=== PATIENT | female | born 1995 | race African-American/Black ===

== ENCOUNTER → 2021-01-26 | Outpatient (CLI) | payer OTHER | LOC: RAD 12:25 | PROVIDERS: ATTEND Physician Assistant | DX: L73.2 Hidradenitis suppurativa (principal); Z79.899 Other long term (current) drug therapy ==

== ENCOUNTER → 2021-02-07 | Outpatient (CLI) | payer OTHER | LOC: RAD 09:55 | PROVIDERS: ATTEND Internal Medicine Rheumatology | DX: M25.539 Pain in unspecified wrist (principal); M25.579 Pain in unspecified ankle and joints of unspecified foot; R70.0 Elevated erythrocyte sedimentation rate ==

== ENCOUNTER → 2021-08-16 | Outpatient (CLI) | payer OTHER | LOC: HYPER 07:22 | PROVIDERS: ATTEND Emergency Medicine | DX: L97.112 Non-pressure chronic ulcer of right thigh with fat layer exposed (principal); L97.122 Non-pressure chronic ulcer of left thigh with fat layer exposed; L98.492 Non-pressure chronic ulcer of skin of other sites with fat layer exposed; L98.412 Non-pressure chronic ulcer of buttock with fat layer exposed; L73.2 Hidradenitis suppurativa; J45.909 Unspecified asthma, uncomplicated; G89.29 Other chronic pain; E66.9 Obesity, unspecified; Z68.31 Body mass index [BMI] 31.0-31.9, adult; Z79.899 Other long term (current) drug therapy ==

== ENCOUNTER → 2021-09-19 | Outpatient (CLI) | payer OTHER | LOC: HYPER 12:46 | PROVIDERS: ATTEND Emergency Medicine | DX: T81.89XA Other complications of procedures, not elsewhere classified, initial encounter (principal); L73.2 Hidradenitis suppurativa; L98.492 Non-pressure chronic ulcer of skin of other sites with fat layer exposed; L97.112 Non-pressure chronic ulcer of right thigh with fat layer exposed; L97.122 Non-pressure chronic ulcer of left thigh with fat layer exposed; L98.412 Non-pressure chronic ulcer of buttock with fat layer exposed; J45.909 Unspecified asthma, uncomplicated; G89.29 Other chronic pain; E66.9 Obesity, unspecified; Z68.30 Body mass index [BMI] 30.0-30.9, adult; Y92.238 Other place in hospital as the place of occurrence of the external cause; Y83.8 Other surgical procedures as the cause of abnormal reaction of the patient, or of later complication, without mention of misadventure at the time of the procedure ==

== ENCOUNTER → 2021-09-20 | Outpatient (CLI) | payer OTHER | LOC: HYPER 15:07 | DX: T81.31XD Disruption of external operation (surgical) wound, not elsewhere classified, subsequent encounter (principal); L98.412 Non-pressure chronic ulcer of buttock with fat layer exposed; L98.492 Non-pressure chronic ulcer of skin of other sites with fat layer exposed; L97.112 Non-pressure chronic ulcer of right thigh with fat layer exposed; L97.122 Non-pressure chronic ulcer of left thigh with fat layer exposed; L73.2 Hidradenitis suppurativa; J45.909 Unspecified asthma, uncomplicated; E66.9 Obesity, unspecified; G89.29 Other chronic pain; Z68.31 Body mass index [BMI] 31.0-31.9, adult; Z79.899 Other long term (current) drug therapy; Y83.8 Other surgical procedures as the cause of abnormal reaction of the patient, or of later complication, without mention of misadventure at the time of the procedure ==

== ENCOUNTER → 2021-09-21 | Outpatient (CLI) | payer OTHER | LOC: HYPER 07:44 | PROVIDERS: ATTEND Emergency Medicine Emergency Medical Services | DX: T81.31XD Disruption of external operation (surgical) wound, not elsewhere classified, subsequent encounter (principal); L73.2 Hidradenitis suppurativa; L98.492 Non-pressure chronic ulcer of skin of other sites with fat layer exposed; L97.112 Non-pressure chronic ulcer of right thigh with fat layer exposed; L97.122 Non-pressure chronic ulcer of left thigh with fat layer exposed; L98.412 Non-pressure chronic ulcer of buttock with fat layer exposed; J45.909 Unspecified asthma, uncomplicated; G89.29 Other chronic pain; E66.9 Obesity, unspecified; Z68.31 Body mass index [BMI] 31.0-31.9, adult; Z79.899 Other long term (current) drug therapy; Y83.8 Other surgical procedures as the cause of abnormal reaction of the patient, or of later complication, without mention of misadventure at the time of the procedure ==

== ENCOUNTER → 2021-09-24 | Outpatient (CLI) | payer OTHER | LOC: HYPER 11:13 | PROVIDERS: ATTEND Emergency Medicine | DX: T81.31XD Disruption of external operation (surgical) wound, not elsewhere classified, subsequent encounter (principal); L98.412 Non-pressure chronic ulcer of buttock with fat layer exposed; L98.492 Non-pressure chronic ulcer of skin of other sites with fat layer exposed; L97.112 Non-pressure chronic ulcer of right thigh with fat layer exposed; L97.122 Non-pressure chronic ulcer of left thigh with fat layer exposed; L73.2 Hidradenitis suppurativa; J45.909 Unspecified asthma, uncomplicated; G89.29 Other chronic pain; E66.9 Obesity, unspecified; Z68.31 Body mass index [BMI] 31.0-31.9, adult; Z79.899 Other long term (current) drug therapy; Y83.8 Other surgical procedures as the cause of abnormal reaction of the patient, or of later complication, without mention of misadventure at the time of the procedure ==

== ENCOUNTER 2021-09-30 21:41 | Emergency (ER) | payer OTHER ==
[~2021-09-30] VITALS: Ht 160 cm; Wt 83.9 kg
[2021-09-30 21:44] VITALS: BP 127/78
[2021-09-30 22:09] LABS: URINE BILIRUBIN NEGATIVE (Negative); URINE BLOOD 3+ (Negative); URINE CLARITY SL CLOUDY; URINE COLOR YELLOW; URINE GLUCOSE-RANDOM* NEGATIVE (Negative); URINE KETONES NEGATIVE (Negative); URINE NITRITE-REFLEX NEGATIVE (Negative); URINE PROTEIN (DIPSTICK) 1+ (Negative); URINE UROBILINOGEN 0.2 E.U./dl (0.2-1.0)
[2021-09-30 22:12] LABS: URINE LEUKOCYTES-REFLEX 1+ (Negative)
[2021-09-30 23:03] LABS: SQUAMOUS None Seen /LPF (0-3)
[2021-09-30 23:04] LABS: BACTERIA-REFLEX 1-9 Few /HPF (None Seen); CASTS None Seen /LPF (None Seen); CRYSTALS None Seen /LPF (None Seen); MUCUS 0-3 Light strn/LPF (None Seen)
[2021-09-30 23:05] LABS: URINE WBC-REFLEX 0-5 Rare /HPF (0-5)
== END 2021-09-30 23:30 | disposition home or self-care (01) ==
LOC: ER 21:41
PROVIDERS: Emergency Medicine
DX: T83.83XA Hemorrhage due to genitourinary prosthetic devices, implants and grafts, initial encounter (principal); Z98.890 Other specified postprocedural states

== ENCOUNTER → 2021-10-03 | Outpatient (CLI) | payer OTHER | LOC: HYPER 08:15 | PROVIDERS: ATTEND Emergency Medicine | DX: T81.31XD Disruption of external operation (surgical) wound, not elsewhere classified, subsequent encounter (principal); L98.412 Non-pressure chronic ulcer of buttock with fat layer exposed; L98.492 Non-pressure chronic ulcer of skin of other sites with fat layer exposed; L97.112 Non-pressure chronic ulcer of right thigh with fat layer exposed; L97.122 Non-pressure chronic ulcer of left thigh with fat layer exposed; L73.2 Hidradenitis suppurativa; J45.909 Unspecified asthma, uncomplicated; G89.29 Other chronic pain; E66.9 Obesity, unspecified; Z68.31 Body mass index [BMI] 31.0-31.9, adult; Y83.8 Other surgical procedures as the cause of abnormal reaction of the patient, or of later complication, without mention of misadventure at the time of the procedure ==

== ENCOUNTER → 2021-10-10 | Outpatient (CLI) | payer OTHER | LOC: HYPER 09:14 | PROVIDERS: ATTEND Emergency Medicine | DX: T81.31XD Disruption of external operation (surgical) wound, not elsewhere classified, subsequent encounter (principal); L98.412 Non-pressure chronic ulcer of buttock with fat layer exposed; L98.492 Non-pressure chronic ulcer of skin of other sites with fat layer exposed; L97.112 Non-pressure chronic ulcer of right thigh with fat layer exposed; L97.122 Non-pressure chronic ulcer of left thigh with fat layer exposed; L73.2 Hidradenitis suppurativa; J45.909 Unspecified asthma, uncomplicated; G89.29 Other chronic pain; E66.9 Obesity, unspecified; Z68.31 Body mass index [BMI] 31.0-31.9, adult; Y83.8 Other surgical procedures as the cause of abnormal reaction of the patient, or of later complication, without mention of misadventure at the time of the procedure ==

== ENCOUNTER → 2021-10-17 | Outpatient (CLI) | payer OTHER | LOC: HYPER 08:41 | PROVIDERS: ATTEND Emergency Medicine | DX: T81.31XD Disruption of external operation (surgical) wound, not elsewhere classified, subsequent encounter (principal); L97.112 Non-pressure chronic ulcer of right thigh with fat layer exposed; L97.122 Non-pressure chronic ulcer of left thigh with fat layer exposed; L98.492 Non-pressure chronic ulcer of skin of other sites with fat layer exposed; L98.412 Non-pressure chronic ulcer of buttock with fat layer exposed; L73.2 Hidradenitis suppurativa; Z68.31 Body mass index [BMI] 31.0-31.9, adult; E66.9 Obesity, unspecified; J45.909 Unspecified asthma, uncomplicated; G89.29 Other chronic pain; Z79.01 Long term (current) use of anticoagulants; Z79.899 Other long term (current) drug therapy; Y83.8 Other surgical procedures as the cause of abnormal reaction of the patient, or of later complication, without mention of misadventure at the time of the procedure ==

== ENCOUNTER → 2021-10-24 | Outpatient (CLI) | payer OTHER | LOC: HYPER 13:20 | PROVIDERS: ATTEND Emergency Medicine Emergency Medical Services | DX: T81.31XD Disruption of external operation (surgical) wound, not elsewhere classified, subsequent encounter (principal); L98.492 Non-pressure chronic ulcer of skin of other sites with fat layer exposed; L98.412 Non-pressure chronic ulcer of buttock with fat layer exposed; L97.112 Non-pressure chronic ulcer of right thigh with fat layer exposed; L97.122 Non-pressure chronic ulcer of left thigh with fat layer exposed; L73.2 Hidradenitis suppurativa; E66.9 Obesity, unspecified; J45.909 Unspecified asthma, uncomplicated; G89.29 Other chronic pain; Z68.31 Body mass index [BMI] 31.0-31.9, adult; Z79.01 Long term (current) use of anticoagulants; Z79.899 Other long term (current) drug therapy; Y83.8 Other surgical procedures as the cause of abnormal reaction of the patient, or of later complication, without mention of misadventure at the time of the procedure ==

== ENCOUNTER → 2021-10-31 | Outpatient (CLI) | payer OTHER | LOC: HYPER 08:09 | PROVIDERS: ATTEND Emergency Medicine | DX: T81.31XD Disruption of external operation (surgical) wound, not elsewhere classified, subsequent encounter (principal); L98.492 Non-pressure chronic ulcer of skin of other sites with fat layer exposed; L98.412 Non-pressure chronic ulcer of buttock with fat layer exposed; L97.112 Non-pressure chronic ulcer of right thigh with fat layer exposed; L97.122 Non-pressure chronic ulcer of left thigh with fat layer exposed; L73.2 Hidradenitis suppurativa; L84 Corns and callosities; E66.9 Obesity, unspecified; J45.909 Unspecified asthma, uncomplicated; G89.29 Other chronic pain; Z68.31 Body mass index [BMI] 31.0-31.9, adult; Z79.01 Long term (current) use of anticoagulants; Y83.8 Other surgical procedures as the cause of abnormal reaction of the patient, or of later complication, without mention of misadventure at the time of the procedure ==

== ENCOUNTER → 2021-11-07 | Outpatient (CLI) | payer OTHER | LOC: HYPER 10:05 | PROVIDERS: ATTEND Emergency Medicine | DX: T81.31XD Disruption of external operation (surgical) wound, not elsewhere classified, subsequent encounter (principal); L73.2 Hidradenitis suppurativa; L97.112 Non-pressure chronic ulcer of right thigh with fat layer exposed; L97.122 Non-pressure chronic ulcer of left thigh with fat layer exposed; L98.412 Non-pressure chronic ulcer of buttock with fat layer exposed; J45.909 Unspecified asthma, uncomplicated; G89.29 Other chronic pain; E66.9 Obesity, unspecified; Z68.31 Body mass index [BMI] 31.0-31.9, adult; Z79.01 Long term (current) use of anticoagulants; Z79.899 Other long term (current) drug therapy; Y83.8 Other surgical procedures as the cause of abnormal reaction of the patient, or of later complication, without mention of misadventure at the time of the procedure ==

== ENCOUNTER → 2021-11-14 | Outpatient (CLI) | payer OTHER | LOC: HYPER 09:28 | PROVIDERS: ATTEND Emergency Medicine | DX: T81.31XD Disruption of external operation (surgical) wound, not elsewhere classified, subsequent encounter (principal); L97.112 Non-pressure chronic ulcer of right thigh with fat layer exposed; L97.122 Non-pressure chronic ulcer of left thigh with fat layer exposed; L97.412 Non-pressure chronic ulcer of right heel and midfoot with fat layer exposed; L98.492 Non-pressure chronic ulcer of skin of other sites with fat layer exposed; L73.2 Hidradenitis suppurativa; L84 Corns and callosities; G89.29 Other chronic pain; E66.9 Obesity, unspecified; J45.909 Unspecified asthma, uncomplicated; Z68.31 Body mass index [BMI] 31.0-31.9, adult; Z79.01 Long term (current) use of anticoagulants; Y83.8 Other surgical procedures as the cause of abnormal reaction of the patient, or of later complication, without mention of misadventure at the time of the procedure ==

== ENCOUNTER → 2021-11-21 | Outpatient (CLI) | payer OTHER | LOC: HYPER 09:15 | PROVIDERS: ATTEND Emergency Medicine | DX: T81.31XD Disruption of external operation (surgical) wound, not elsewhere classified, subsequent encounter (principal); L98.412 Non-pressure chronic ulcer of buttock with fat layer exposed; L97.122 Non-pressure chronic ulcer of left thigh with fat layer exposed; L97.112 Non-pressure chronic ulcer of right thigh with fat layer exposed; L98.492 Non-pressure chronic ulcer of skin of other sites with fat layer exposed; L73.2 Hidradenitis suppurativa; J45.909 Unspecified asthma, uncomplicated; G89.29 Other chronic pain; E66.9 Obesity, unspecified; Z68.31 Body mass index [BMI] 31.0-31.9, adult; Z79.01 Long term (current) use of anticoagulants; Z79.899 Other long term (current) drug therapy; Y83.8 Other surgical procedures as the cause of abnormal reaction of the patient, or of later complication, without mention of misadventure at the time of the procedure ==

== ENCOUNTER → 2021-11-28 | Outpatient (CLI) | payer OTHER | LOC: HYPER 09:22 | PROVIDERS: ATTEND Emergency Medicine | DX: T81.31XD Disruption of external operation (surgical) wound, not elsewhere classified, subsequent encounter (principal); L98.412 Non-pressure chronic ulcer of buttock with fat layer exposed; L97.122 Non-pressure chronic ulcer of left thigh with fat layer exposed; L97.112 Non-pressure chronic ulcer of right thigh with fat layer exposed; L98.492 Non-pressure chronic ulcer of skin of other sites with fat layer exposed; L73.2 Hidradenitis suppurativa; J45.909 Unspecified asthma, uncomplicated; G89.29 Other chronic pain; E66.9 Obesity, unspecified; Z68.31 Body mass index [BMI] 31.0-31.9, adult; Z79.01 Long term (current) use of anticoagulants; Y83.8 Other surgical procedures as the cause of abnormal reaction of the patient, or of later complication, without mention of misadventure at the time of the procedure ==

== ENCOUNTER → 2021-12-12 | Outpatient (CLI) | payer OTHER | LOC: HYPER 09:19 | PROVIDERS: ATTEND Emergency Medicine | DX: T81.31XD Disruption of external operation (surgical) wound, not elsewhere classified, subsequent encounter (principal); L98.412 Non-pressure chronic ulcer of buttock with fat layer exposed; L97.122 Non-pressure chronic ulcer of left thigh with fat layer exposed; L97.112 Non-pressure chronic ulcer of right thigh with fat layer exposed; L98.492 Non-pressure chronic ulcer of skin of other sites with fat layer exposed; L73.2 Hidradenitis suppurativa; L84 Corns and callosities; J45.909 Unspecified asthma, uncomplicated; G89.29 Other chronic pain; E66.9 Obesity, unspecified; Z68.31 Body mass index [BMI] 31.0-31.9, adult; Z79.01 Long term (current) use of anticoagulants; Y83.8 Other surgical procedures as the cause of abnormal reaction of the patient, or of later complication, without mention of misadventure at the time of the procedure ==

== ENCOUNTER → 2021-12-26 | Outpatient (CLI) | payer OTHER | LOC: HYPER 07:57 | PROVIDERS: ATTEND Emergency Medicine | DX: T81.31XD Disruption of external operation (surgical) wound, not elsewhere classified, subsequent encounter (principal); L98.412 Non-pressure chronic ulcer of buttock with fat layer exposed; L97.122 Non-pressure chronic ulcer of left thigh with fat layer exposed; L97.112 Non-pressure chronic ulcer of right thigh with fat layer exposed; L98.492 Non-pressure chronic ulcer of skin of other sites with fat layer exposed; L73.2 Hidradenitis suppurativa; L84 Corns and callosities; J45.909 Unspecified asthma, uncomplicated; G89.29 Other chronic pain; E66.9 Obesity, unspecified; Z68.31 Body mass index [BMI] 31.0-31.9, adult; Z79.01 Long term (current) use of anticoagulants; Y83.8 Other surgical procedures as the cause of abnormal reaction of the patient, or of later complication, without mention of misadventure at the time of the procedure ==